=== PATIENT | male | born 1940 | race Caucasian/White ===

== ENCOUNTER 2019-03-07 22:45 | Observation (INO) | payer OTHER, MEDICARE ==
[~2019-03-07] VITALS: Ht 177.8 cm; Wt 66.3 kg
[2019-03-09 07:39] VITALS: BP 122/67
== END 2019-03-09 11:14 | disposition home or self-care (01) ==
LOC: ED 03-08 00:09 → EDIP 03-08 02:26 → INTOOBSV 03-08 02:26 → 3NE 03-08 03:16 → DCLOUNGE 03-09 11:04
PROVIDERS: ADMIT Internal Medicine; ATTEND Internal Medicine
DX: N39.0 Urinary tract infection, site not specified (principal); I10 Essential (primary) hypertension; N40.0 Benign prostatic hyperplasia without lower urinary tract symptoms; I71.2 Thoracic aortic aneurysm, without rupture; I25.10 Atherosclerotic heart disease of native coronary artery without angina pectoris; J44.9 Chronic obstructive pulmonary disease, unspecified; K21.9 Gastro-esophageal reflux disease without esophagitis; E78.00 Pure hypercholesterolemia, unspecified; Z87.891 Personal history of nicotine dependence; Z95.5 Presence of coronary angioplasty implant and graft
CPT/HCPCS: 36415; 71275; 74175; 80053; 80061; 81001; 83036; 83605; 83735; 83880; 84439; 84443; 84484; 85025; 87077; 87086; 87186; 93005; 96361; 96365; 96366; 96372; 96375; 97162; 97165; 99284; G0103; G0378; J0696; J1644; J2405; J7030; Q9967